=== PATIENT | male | born 1990 | race American Indian/Alaskan Native ===

== ENCOUNTER 2022-03-18 02:54 | Emergency (ER) | payer SELFPAY ==
[2022-03-18] MEDS ORDERED: Acetaminophen Soln 650 MG/20.3 ML UD Cup PO ONE (03:23)
[2022-03-18] MEDS ORDERED: Acetaminophen 325 MG Tab PO ONE (03:26)
== END 2022-03-18 03:39 | disposition home or self-care (01) ==
LOC: JP.ED 02:54
DX: T33.821A Superficial frostbite of right foot, initial encounter (principal); T33.822A Superficial frostbite of left foot, initial encounter; X31.XXXA Exposure to excessive natural cold, initial encounter
CPT/HCPCS: 99282; 99283; A9270-GY